=== PATIENT | male | born 1940 | race Caucasian/White ===

== ENCOUNTER 2020-11-19 10:26 | Outpatient (CLI) | payer OTHER ==
[~2020-11-19] VITALS: Ht 167.6 cm; Wt 106.6 kg
[2020-11-19] MEDS ORDERED: albuterol 2.5 MG/3 ML nebule NEB PRN (10:55)
== END 2020-11-19 23:59 | disposition home or self-care (01) ==
LOC: RT 10:26
DX: R94.2 Abnormal results of pulmonary function studies (principal); I51.7 Cardiomegaly; M85.88 Other specified disorders of bone density and structure, other site; M47.814 Spondylosis without myelopathy or radiculopathy, thoracic region; J44.9 Chronic obstructive pulmonary disease, unspecified
CPT/HCPCS: 71046; 94060; 94729; 94760